=== PATIENT | male | born 1955 | race Caucasian/White ===

== ENCOUNTER → 2016-06-08 | Outpatient (CLI) | payer OTHER ==
[~2016-06-08] MED LIST: BENA40TA2 PO; DOCU100C PO; DULO60CA55 PO; GABA600T2 PO; HYDR-3138 PO; MELO-184 PO; METO50TA82 PO; OXYC-302 PO; TAMS0.4C2 PO; TIZA2CAP PO; TRIA1TAB3 PO; ZOLP10TA5 PO
== END | disposition home or self-care (01) ==
LOC: RAD 09:12
PROVIDERS: ATTEND Student in an Organized Health Care Education/Training Program
DX: M48.02 Spinal stenosis, cervical region (principal); M47.892 Other spondylosis, cervical region; M43.22 Fusion of spine, cervical region
CPT/HCPCS: 72141

== ENCOUNTER → 2017-02-17 | Outpatient (CLI) | payer OTHER ==
[~2017-02-17] MED LIST changes: +DOCU-180 PO; -DOCU100C PO; -HYDR-3138 PO; +HYDR-3237 PO; -MELO-184 PO; +MELO15TA24 PO
== END | disposition home or self-care (01) ==
LOC: CFH 15:57
PROVIDERS: ATTEND Student in an Organized Health Care Education/Training Program
DX: M51.26 Other intervertebral disc displacement, lumbar region (principal); M51.36 Other intervertebral disc degeneration, lumbar region; M25.78 Osteophyte, vertebrae; M48.061 Spinal stenosis, lumbar region without neurogenic claudication; M41.86 Other forms of scoliosis, lumbar region
CPT/HCPCS: 72148

== ENCOUNTER → 2017-09-07 | Outpatient (CLI) | payer OTHER | END | disposition home or self-care (01) | LOC: CVU 11:00 | PROVIDERS: ATTEND Family Medicine | DX: I10 Essential (primary) hypertension (principal); R01.1 Cardiac murmur, unspecified | CPT/HCPCS: 93306 ==

== ENCOUNTER → 2017-11-01 | Outpatient (CLI) | payer OTHER ==
[~2017-11-01] MED LIST changes: -BENA40TA2 PO; +BENA40TA3 PO; +TRIA1CAP3 PO
[2017-11-01 11:14] LABS: BASOPHILS # (AUTO) 0.05 x10^3/uL (0-0.1); BASOPHILS % (AUTO) 1 % (0-1); EOSINOPHILS # (AUTO) 0.61 x10^3/uL (0-0.4); EOSINOPHILS % (AUTO) 6 % (1-7); LYMPHOCYTES # (AUTO) 2.42 x10^3/uL (1-3.4); LYMPHOCYTES % (AUTO) 26 % (22-44); MD NO; MEAN CORPUSCULAR HEMOGLOBIN 30.2 pg (27.5-34.5); MEAN CORPUSCULAR HGB CONC 34.4 g/dL (33.2-36.2); MEAN CORPUSCULAR VOLUME 87.8 fL (81-97); MEAN PLATELET VOLUME 8.1 fL (7.4-10.4); MONOCYTES % (AUTO) 8 % (2-9); NEUTROPHILS # (AUTO) 5.56 x10^3/uL (1.8-6.8); NEUTROPHILS % (AUTO) 59 % (42-75); PLATELET COUNT 282 x10^3/uL (130-400); RED BLOOD COUNT 4.74 x10^6/uL (4.38-5.82); RED CELL DISTRIBUTION WIDTH 13.2 % (9.4-14.8)
[2017-11-01 11:15] LABS: MICROSCOPIC NOT IND
[2017-11-01 11:16] LABS: CULTURE INDICATED? NO
[2017-11-01 11:25] LABS: PROTHROMBIN TIME 10.3 Seconds (9.6-11.5)
[2017-11-01 11:27] LABS: ALANINE AMINOTRANSFERASE 22 U/L (12-78); ALBUMIN 3.9 g/dL (3.4-5.0); ANION GAP 10 mmol/L (5-15); CALCIUM 8.6 mg/dL (8.5-10.1); CHLORIDE 99 mmol/L (98-107); CREATININE 1.22 mg/dL (0.7-1.3)
[2017-11-01 11:29] LABS: ALKALINE PHOSPHATASE 71 U/L (45-117); BILIRUBIN,TOTAL 0.4 mg/dL (0.2-1.0); TOTAL PROTEIN 7.4 g/dL (6.4-8.2)
== END | disposition home or self-care (01) ==
LOC: STAR 10:11
PROVIDERS: ATTEND Neurological Surgery
DX: Z01.818 Encounter for other preprocedural examination (principal); M41.86 Other forms of scoliosis, lumbar region; M48.061 Spinal stenosis, lumbar region without neurogenic claudication; R94.31 Abnormal electrocardiogram [ECG] [EKG]; Z87.891 Personal history of nicotine dependence
CPT/HCPCS: 36415; 71046; 72110; 80053; 81003; 85025; 85610; 85730; 93005

== ENCOUNTER → 2018-03-14 | Outpatient (CLI) | payer OTHER ==
[~2018-03-14] MED LIST changes: +HYDR-3307 PO; +TIZA2TAB PO
[2018-03-14 12:35] LABS: BASOPHILS # (AUTO) 0.08 x10^3/uL (0-0.1); BASOPHILS % (AUTO) 1 % (0-1); EOSINOPHILS % (AUTO) 7 % (1-7); LYMPHOCYTES # (AUTO) 2.83 x10^3/uL (1-3.4); LYMPHOCYTES % (AUTO) 26 % (22-44); MD NO; MEAN CORPUSCULAR HEMOGLOBIN 29.5 pg (27.5-34.5); MEAN CORPUSCULAR HGB CONC 33.8 g/dL (33.2-36.2); MEAN CORPUSCULAR VOLUME 87.5 fL (81-97); MEAN PLATELET VOLUME 7.8 fL (7.4-10.4); MONOCYTES # (AUTO) 0.87 x10^3/uL (0.2-0.8); MONOCYTES % (AUTO) 8 % (2-9); NEUTROPHILS # (AUTO) 6.35 x10^3/uL (1.8-6.8); NEUTROPHILS % (AUTO) 59 % (42-75); PLATELET COUNT 316 x10^3/uL (130-400); RED BLOOD COUNT 4.98 x10^6/uL (4.38-5.82); RED CELL DISTRIBUTION WIDTH 13.6 % (9.4-14.8)
[2018-03-14 12:52] LABS: ALANINE AMINOTRANSFERASE 23 U/L (12-78); ALBUMIN 4.1 g/dL (3.4-5.0); ANION GAP 6 mmol/L (5-15); CALCIUM 8.9 mg/dL (8.5-10.1); CHLORIDE 96 mmol/L (98-107); CREATININE 1.36 mg/dL (0.7-1.3)
[2018-03-14 12:54] LABS: ALKALINE PHOSPHATASE 68 U/L (45-117); BILIRUBIN,TOTAL 0.5 mg/dL (0.2-1.0); INTERNATIONAL NORMALIZED RATIO 1.04 (0.93-1.1); TOTAL PROTEIN 7.7 g/dL (6.4-8.2)
[2018-03-14 13:10] LABS: MICROSCOPIC NOT IND
[2018-03-14 13:20] LABS: CULTURE INDICATED? NO
== END | disposition home or self-care (01) ==
LOC: STAR 11:13
PROVIDERS: ATTEND Neurological Surgery
DX: Z01.818 Encounter for other preprocedural examination (principal); M47.26 Other spondylosis with radiculopathy, lumbar region
CPT/HCPCS: 36415; 71046; 80053; 81003; 85025; 85610; 85730; 93005

== ENCOUNTER 2018-03-23 13:19 | Outpatient (CLI) | payer OTHER ==
[~2018-03-23 13:19] MED LIST changes: -GABA600T2 PO; +GABA600T7 PO
[2018-03-27] MEDS ORDERED: ROCURONIUM 10MG/ML,5ML ONE (06:46)
[2018-03-27] MEDS ORDERED: PROPOFOL 10 MG/ML, 20ML ONE ×3 (06:47→10:44)
[2018-03-27] MEDS ORDERED: FENTANYL PF 100 MCG/2ML ONE ×2 (06:50→11:11)
[2018-03-27] MEDS ORDERED: PHENYLEPHRINE 10 MG/ML ONE (06:50)
[2018-03-27] MEDS ORDERED: MIDAZOLAM 1 MG/ML, 2ML ONE (06:51)
[2018-03-27] MEDS ORDERED: EPHEDRINE 50 MG/ML, 1ML ONE (06:52)
[2018-03-27] MEDS ORDERED: ETOMIDATE 20 MG/10 ML ONE (06:54)
[2018-03-27] MEDS ORDERED: PROPOFOL 50 ML ONE ×6 (07:21→09:51)
[2018-03-27] MEDS ORDERED: LIDOCAINE 2% 100MG/5ML SYRINGE ONE ×2 (07:21→09:38)
[2018-03-27] MEDS ORDERED: HEPARIN 1,000 UNITS/ML, 30ML ONE (07:57)
== END 2018-03-23 23:59 | disposition home or self-care (01) ==
LOC: STAR 13:19
PROVIDERS: ATTEND Neurological Surgery
DX: Z01.818 Encounter for other preprocedural examination (principal); E87.1 Hypo-osmolality and hyponatremia
CPT/HCPCS: 36415; 84295

== ENCOUNTER 2018-03-27 05:26 | Inpatient (IN) | payer OTHER ==
[~2018-03-27] VITALS: Ht 180.3 cm; Wt 118.4 kg
[2018-03-27] MEDS ORDERED: LACTATED RINGERS 1,000 ML IV SCH (06:04)
[2018-03-27 06:06] VITALS: BP 120/78
[2018-03-27] MEDS ORDERED: BUPIVACAINE/PF-EPI 0.5% 1:200K ONE (06:19)
[2018-03-27] MEDS ORDERED: THROMBIN 5,000 UNIT VIAL TP ONE ×2 (06:19→11:30)
[2018-03-27] MEDS ORDERED: VANCOMYCIN 1,000 MG ONE (06:19)
[2018-03-27] MEDS ORDERED: BACITRACIN 50,000 UNIT ONE (06:19)
[2018-03-27] MEDS ORDERED: AMLO-150 PO (06:36)
[2018-03-27] MEDS ORDERED: TRAZ50TA66 PO (06:36)
[2018-03-27] MEDS ORDERED: FURO20TA3 PO (06:36)
[2018-03-27] MEDS ORDERED: LIDOCAINE-MPF 2% ,5ML ONE (07:00)
[2018-03-27] MEDS ORDERED: PROPOFOL 10 MG/ML, 50ML ONE (07:00)
[2018-03-27] MEDS ORDERED: CEFAZOLIN 1,000 MG ONE (07:00)
[2018-03-27] MEDS ORDERED: PROPOFOL 10 MG/ML, 20ML ONE (07:00)
[2018-03-27] MEDS ORDERED: PHENYLEPHRINE 10 MG/ML ONE (07:00)
[2018-03-27] MEDS ORDERED: OXYcodone 5 MG/5 ML ORAL.SOL UDC PO PRN (09:30)
[2018-03-27] MEDS ORDERED: MEPERIDINE/PF 25MG/0.5ML IVPush PRN (09:30)
[2018-03-27] MEDS ORDERED: HYDROcodone/APAP 7.5-325MG/15ML UDC PO PRN (09:30)
[2018-03-27] MEDS ORDERED: HYDROmorphone 2 MG/ML, 1ML IVPush PRN (09:30)
[2018-03-27] MEDS ORDERED: SUGAMMADEX 200 MG/2 ML IVPush ONE (10:28)
[2018-03-27] MEDS ORDERED: PROMETHAZINE 25 MG/ML, 1ML IM PRN (11:30)
[2018-03-27] MEDS ORDERED: LABETALOL 5MG/ML, 20ML IVPush PRN (11:30)
[2018-03-27] MEDS ORDERED: BISACODYL 10 MG SUPP PR PRN (11:30)
[2018-03-27] MEDS ORDERED: MAGNESIUM HYDROXIDE 8%, 30ML UDC PO PRN (11:30)
[2018-03-27] MEDS ORDERED: TIZANIDINE 2MG TABLET PO PRN (11:30)
[2018-03-27] MEDS ORDERED: MEPERIDINE/PF 100 MG/ML IM PRN (11:30)
[2018-03-27] MEDS ORDERED: HYDROmorphone 1 MG/ML, 1ML IVPush PRN (11:30)
[2018-03-27] MEDS ORDERED: ONDANSETRON 2MG/ML, 2ML IVPush PRN (11:30)
[2018-03-27] MEDS ORDERED: DIPHENHYDRAMINE 25 MG CAPSULE PO PRN (11:30)
[2018-03-27] MEDS ORDERED: PHARMACY MAY ADJ FOR RENAL FX MC PRN (11:30)
[2018-03-27] MEDS ORDERED: FENTANYL PF 100 MCG/2ML ONE (11:56)
[2018-03-27 11:59] LABS: BASOPHILS # (AUTO) 0.05 x10^3/uL (0-0.1); BASOPHILS % (AUTO) 0 % (0-1); EOSINOPHILS # (AUTO) 0.04 x10^3/uL (0-0.4); EOSINOPHILS % (AUTO) 0 % (1-7); LYMPHOCYTES # (AUTO) 1.24 x10^3/uL (1-3.4); LYMPHOCYTES % (AUTO) 9 % (22-44); MD NO; MEAN CORPUSCULAR HEMOGLOBIN 29.4 pg (27.5-34.5); MEAN CORPUSCULAR HGB CONC 33.8 g/dL (33.2-36.2); MEAN CORPUSCULAR VOLUME 86.9 fL (81-97); MEAN PLATELET VOLUME 7.8 fL (7.4-10.4); MONOCYTES # (AUTO) 0.86 x10^3/uL (0.2-0.8); MONOCYTES % (AUTO) 6 % (2-9); NEUTROPHILS # (AUTO) 11.72 x10^3/uL (1.8-6.8); NEUTROPHILS % (AUTO) 84 % (42-75); PLATELET COUNT 247 x10^3/uL (130-400); RED BLOOD COUNT 3.75 x10^6/uL (4.38-5.82); RED CELL DISTRIBUTION WIDTH 13.7 % (9.4-14.8)
[2018-03-27] MEDS: FENTANYL PF 100 MCG/2ML IV PRN ×3 (12:00→12:28)
[2018-03-27 12:06] LABS: INTERNATIONAL NORMALIZED RATIO 1.06 (0.93-1.1); PROTHROMBIN TIME 11.2 Seconds (9.6-11.5)
[2018-03-27] MEDS: NS + 20MEQ KCL 1,000 ML IV SCH ×2 (14:22→23:05)
[2018-03-27] MEDS: CEFAZOLIN PMX 1GM/50ML 50 ML IVPB SCH ×2 (14:22→23:05)
[2018-03-27 14:25] VITALS: BP 93/60
[2018-03-27 20:19] VITALS: BP 95/62
[2018-03-27] MEDS: TRAZODONE 50MG TABLET PO SCH (20:21)
[2018-03-27] MEDS: GABAPENTIN 300 MG CAPSULE PO SCH (20:21)
[2018-03-27] MEDS: ZOLPIDEM 10MG TABLET PO SCH (20:22)
[2018-03-27] MEDS: SODIUM CHLORIDE FLUSH 10ML SYR IVF SCH (20:22)
[2018-03-27] MEDS: METOPROLOL TARTRATE 50 MG TABLET PO SCH (20:22)
[2018-03-27] MEDS: DULOXETINE 30 MG CAPSULE.DR PO SCH (20:22)
[2018-03-27 20:24] VITALS: BP 95/62
[2018-03-28] VITALS: BP 103/55
[2018-03-28 03:34] VITALS: BP 116/75
[2018-03-28 06:37] LABS: BASOPHILS # (AUTO) 0.02 x10^3/uL (0-0.1); BASOPHILS % (AUTO) 0 % (0-1); EOSINOPHILS # (AUTO) 0.04 x10^3/uL (0-0.4); EOSINOPHILS % (AUTO) 0 % (1-7); LYMPHOCYTES # (AUTO) 1.38 x10^3/uL (1-3.4); LYMPHOCYTES % (AUTO) 14 % (22-44); MD NO; MEAN CORPUSCULAR HEMOGLOBIN 30.2 pg (27.5-34.5); MEAN CORPUSCULAR HGB CONC 34.7 g/dL (33.2-36.2); MEAN PLATELET VOLUME 7.9 fL (7.4-10.4); MONOCYTES # (AUTO) 1.08 x10^3/uL (0.2-0.8); MONOCYTES % (AUTO) 11 % (2-9); NEUTROPHILS # (AUTO) 7.27 x10^3/uL (1.8-6.8); NEUTROPHILS % (AUTO) 74 % (42-75); PLATELET COUNT 187 x10^3/uL (130-400); RED BLOOD COUNT 3.46 x10^6/uL (4.38-5.82); RED CELL DISTRIBUTION WIDTH 13.4 % (9.4-14.8)
[2018-03-28 06:47] LABS: ANION GAP 4 mmol/L (5-15); CALCIUM 7.6 mg/dL (8.5-10.1); CHLORIDE 99 mmol/L (98-107); CREATININE 1.17 mg/dL (0.7-1.3)
[2018-03-28 06:55] VITALS: BP 118/69
[2018-03-28] MEDS: METOPROLOL TARTRATE 50 MG TABLET PO SCH ×2 (09:09→20:13)
[2018-03-28] MEDS: TRIAMTERENE-HCTZ 37.5/25 MG TABLET PO SCH (09:09)
[2018-03-28] MEDS: TAMSULOSIN 0.4 MG CAP.ER.24H PO SCH (09:09)
[2018-03-28] MEDS: BENAZEPRIL 20 MG TABLET PO SCH (09:10)
[2018-03-28] MEDS: GABAPENTIN 300 MG CAPSULE PO SCH ×2 (09:12→20:11)
[2018-03-28] MEDS: SODIUM CHLORIDE FLUSH 10ML SYR IVF SCH ×2 (09:12→20:14)
[2018-03-28] MEDS: AMLODIPINE 5 MG TABLET PO SCH (09:12)
[2018-03-28] MEDS: FUROSEMIDE 20 MG TABLET PO SCH (09:12)
[2018-03-28] MEDS: SENNA/DOCUSATE TABLET PO SCH (09:13)
[2018-03-28] MEDS ORDERED: OXYcodone/APAP 10/325MG TABLET PO ONE (09:30)
[2018-03-28] MEDS: NS + 20MEQ KCL 1,000 ML IV SCH ×2 (10:00→19:00)
[2018-03-28 14:12] VITALS: BP 121/66
[2018-03-28] MEDS: HYDROcodone/APAP 10/325 MG TABLET PO PRN ×2 (16:05→20:10)
[2018-03-28 19:25] VITALS: BP 106/63
[2018-03-28 20:10] VITALS: BP 114/75
[2018-03-28] MEDS: DULOXETINE 30 MG CAPSULE.DR PO SCH (20:11)
[2018-03-28] MEDS: ZOLPIDEM 10MG TABLET PO SCH (21:19)
[2018-03-28] MEDS: TRAZODONE 50MG TABLET PO SCH (21:20)
[2018-03-29] MEDS: HYDROcodone/APAP 10/325 MG TABLET PO PRN ×3 (00:28→08:54)
[2018-03-29 00:38] VITALS: BP 91/54
[2018-03-29] MEDS: NS + 20MEQ KCL 1,000 ML IV SCH (04:34)
[2018-03-29 05:57] LABS: ANION GAP 6 mmol/L (5-15); CALCIUM 8.5 mg/dL (8.5-10.1); CHLORIDE 96 mmol/L (98-107); CREATININE 1.05 mg/dL (0.7-1.3)
[2018-03-29 06:04] LABS: BASOPHILS # (AUTO) 0.04 x10^3/uL (0-0.1); BASOPHILS % (AUTO) 0 % (0-1); EOSINOPHILS # (AUTO) 0.05 x10^3/uL (0-0.4); EOSINOPHILS % (AUTO) 0 % (1-7); LYMPHOCYTES % (AUTO) 12 % (22-44); MD NO; MEAN CORPUSCULAR HEMOGLOBIN 30.2 pg (27.5-34.5); MEAN CORPUSCULAR HGB CONC 34.9 g/dL (33.2-36.2); MEAN CORPUSCULAR VOLUME 86.5 fL (81-97); MEAN PLATELET VOLUME 8.1 fL (7.4-10.4); MONOCYTES # (AUTO) 1.41 x10^3/uL (0.2-0.8); MONOCYTES % (AUTO) 12 % (2-9); NEUTROPHILS # (AUTO) 8.91 x10^3/uL (1.8-6.8); NEUTROPHILS % (AUTO) 76 % (42-75); PLATELET COUNT 194 x10^3/uL (130-400); RED BLOOD COUNT 3.56 x10^6/uL (4.38-5.82); RED CELL DISTRIBUTION WIDTH 13.6 % (9.4-14.8)
[2018-03-29 06:36] VITALS: BP 107/70
[2018-03-29] MEDS: BENAZEPRIL 20 MG TABLET PO SCH (08:53)
[2018-03-29] MEDS: SENNA/DOCUSATE TABLET PO SCH (08:53)
[2018-03-29] MEDS: TRIAMTERENE-HCTZ 37.5/25 MG TABLET PO SCH (08:53)
[2018-03-29] MEDS: GABAPENTIN 300 MG CAPSULE PO SCH (08:54)
[2018-03-29] MEDS: METOPROLOL TARTRATE 50 MG TABLET PO SCH ×2 (08:55→09:02)
[2018-03-29] MEDS: TAMSULOSIN 0.4 MG CAP.ER.24H PO SCH (08:55)
[2018-03-29] MEDS: FUROSEMIDE 20 MG TABLET PO SCH (08:55)
[2018-03-29] MEDS: AMLODIPINE 5 MG TABLET PO SCH (08:56)
[2018-03-29] MEDS: SODIUM CHLORIDE FLUSH 10ML SYR IVF SCH (08:56)
== END 2018-03-29 12:27 | disposition home or self-care (01) | DRG 455 ==
LOC: ORIP 05:26 → 4NOR 13:18 → DCLOUNGE 03-29 12:00
PROVIDERS: ADMIT Neurological Surgery; ATTEND Neurological Surgery
PROC: 0SG0071 Fusion of Lumbar Vertebral Joint with Autologous Tissue Substitute, Posterior Approach, Posterior Column, Open Approach (ICD-10-PCS; 2018-03-27)
PROC: 0SB20ZZ Excision of Lumbar Vertebral Disc, Open Approach (ICD-10-PCS; 2018-03-27)
PROC: 4A11X4G Monitoring of Peripheral Nervous Electrical Activity, Intraoperative, External Approach (ICD-10-PCS; 2018-03-27)
PROC: 30233K1 Transfusion of Nonautologous Frozen Plasma into Peripheral Vein, Percutaneous Approach (ICD-10-PCS; 2018-03-27)
PROC: 30233N1 Transfusion of Nonautologous Red Blood Cells into Peripheral Vein, Percutaneous Approach (ICD-10-PCS; 2018-03-27)
PROC: 0SG10AJ Fusion of 2 or more Lumbar Vertebral Joints with Interbody Fusion Device, Posterior Approach, Anterior Column, Open Approach (ICD-10-PCS; principal; 2018-03-27 07:00)
DX: M48.062 Spinal stenosis, lumbar region with neurogenic claudication (principal); M51.36 Other intervertebral disc degeneration, lumbar region; E78.00 Pure hypercholesterolemia, unspecified; F41.9 Anxiety disorder, unspecified; F32.9 Major depressive disorder, single episode, unspecified; M19.90 Unspecified osteoarthritis, unspecified site; M47.26 Other spondylosis with radiculopathy, lumbar region; F12.20 Cannabis dependence, uncomplicated; G89.29 Other chronic pain; I12.9 Hypertensive chronic kidney disease with stage 1 through stage 4 chronic kidney disease, or unspecified chronic kidney disease; N18.9 Chronic kidney disease, unspecified; Z83.3 Family history of diabetes mellitus; Z82.49 Family history of ischemic heart disease and other diseases of the circulatory system; Z82.61 Family history of arthritis; Z87.891 Personal history of nicotine dependence
CPT/HCPCS: 36415; 72100; 80048; 85025; 85610; 86850; 86900; 86923; 94660; 95938; 95941; C1713; C1776; G0378; J0690; J1644; J2250; J2270; J2704; J3010; J3370; J3480; J3490; C1762; J2370; J7120; P9016; P9017

== ENCOUNTER 2018-08-22 13:19 | Outpatient (CLI) | payer OTHER ==
[~2018-08-22 13:19] MED LIST changes: +AMLO-150 PO; +FURO20TA3 PO; +TRAZ50TA66 PO
[2018-08-22] MEDS ORDERED: POTA20TA89 PO (14:10)
[2018-08-22] MEDS ORDERED: ZOLP-413 PO (14:10)
[2018-08-22] MEDS ORDERED: MELA1TAB15 PO (14:10)
[2018-08-22 14:34] LABS: BASOPHILS % (AUTO) 1 % (0-1); EOSINOPHILS % (AUTO) 3 % (1-7); LYMPHOCYTES # (AUTO) 3.16 x10^3/uL (1-3.4); LYMPHOCYTES % (AUTO) 28 % (22-44); MD NO; MEAN CORPUSCULAR HEMOGLOBIN 25.9 pg (27.5-34.5); MEAN CORPUSCULAR HGB CONC 31.8 g/dL (33.2-36.2); MEAN CORPUSCULAR VOLUME 81.6 fL (81-97); MEAN PLATELET VOLUME 8.2 fL (7.4-10.4); MONOCYTES % (AUTO) 10 % (2-9); NEUTROPHILS # (AUTO) 6.71 x10^3/uL (1.8-6.8); NEUTROPHILS % (AUTO) 59 % (42-75); PLATELET COUNT 309 x10^3/uL (130-400); RED BLOOD COUNT 5.91 x10^6/uL (4.38-5.82); RED CELL DISTRIBUTION WIDTH 16.1 % (9.4-14.8)
[2018-08-22 14:42] LABS: ALBUMIN 4.1 g/dL (3.4-5.0); ANION GAP 5 mmol/L (5-15); CALCIUM 9.1 mg/dL (8.5-10.1); CHLORIDE 102 mmol/L (98-107)
[2018-08-22 14:42] LABS: MICROSCOPIC NOT IND
[2018-08-22 14:45] LABS: ALANINE AMINOTRANSFERASE 21 U/L (12-78); ALKALINE PHOSPHATASE 97 U/L (45-117); BILIRUBIN,TOTAL 0.5 mg/dL (0.2-1.0); CREATININE 1.26 mg/dL (0.7-1.3); TOTAL PROTEIN 8.2 g/dL (6.4-8.2)
[2018-08-22 14:46] LABS: CULTURE INDICATED? NO
[2018-08-22 15:03] LABS: INTERNATIONAL NORMALIZED RATIO 0.99 (0.93-1.1); PROTHROMBIN TIME 10.4 Seconds (9.6-11.5)
== END 2018-08-22 23:59 | disposition home or self-care (01) ==
LOC: STAR 13:19
PROVIDERS: ATTEND Neurological Surgery
DX: Z01.818 Encounter for other preprocedural examination (principal); T84.3 Mechanical complication of other bone devices, implants and grafts; T84.89XA Other specified complication of internal orthopedic prosthetic devices, implants and grafts, initial encounter
CPT/HCPCS: 36415; 71046; 80053; 81003; 85025; 85610; 85730; 93005

== ENCOUNTER 2018-09-05 11:56 | Inpatient (IN) | payer OTHER ==
[~2018-09-05] VITALS: Ht 180.3 cm; Wt 119.1 kg
[~2018-09-05 11:56] MED LIST changes: +BACITRACIN 50,000 UNIT ONE; +BUPIVACAINE/PF 0.25% ONE; +EPINEPHRINE 1 MG/ML, 1ML ONE; +MELA1TAB15 PO; +POTA20TA89 PO; +THROMBIN 5,000 UNIT VIAL TP ONE; +ZOLP-413 PO
[2018-09-05] MEDS ORDERED: PROPOFOL 50 ML ONE ×2 (12:34→17:04)
[2018-09-05] MEDS ORDERED: MIDAZOLAM 1 MG/ML, 2ML ONE (12:34)
[2018-09-05] MEDS ORDERED: DEXAMETHASONE 4 MG/ML, 1ML ONE ×2 (12:35)
[2018-09-05] MEDS ORDERED: FENTANYL PF 250 MCG/5ML ONE (12:35)
[2018-09-05] MEDS ORDERED: PROPOFOL 10 MG/ML, 20ML ONE (12:35)
[2018-09-05] MEDS ORDERED: CEFAZOLIN 1,000 MG ONE ×2 (12:35)
[2018-09-05] MEDS ORDERED: LIDOCAINE-MPF 2% ,5ML ONE (12:35)
[2018-09-05] MEDS ORDERED: SUCCINYLCHOLINE 20 MG/ML, 10ML ONE (12:37)
[2018-09-05] MEDS: LACTATED RINGERS 1,000 ML IV SCH ×2 (12:48→12:52)
[2018-09-05] MEDS ORDERED: ACETAMINOPHEN 500 MG TABLET PO ONE (13:00)
[2018-09-05] MEDS ORDERED: SCOPOLAMINE PATCH, 1.5MG PATCH.TD72 TD ONE (13:00)
[2018-09-05] MEDS ORDERED: GABAPENTIN 300 MG CAPSULE PO ONE (13:00)
[2018-09-05] MEDS ORDERED: BUPIVACAINE/EPI 0.5% 1:200K ONE (15:05)
[2018-09-05] MEDS ORDERED: EPHEDRINE 50 MG/ML, 1ML ONE (16:27)
[2018-09-05] MEDS ORDERED: ONDANSETRON 2MG/ML, 2ML IV PRN ×2 (16:30→20:00)
[2018-09-05] MEDS ORDERED: ALBUTEROL SULFATE 2.5 MG/3 ML NPPB PRN (16:30)
[2018-09-05] MEDS ORDERED: HYDROmorphone 2 MG/ML, 1ML IVPush PRN (16:30)
[2018-09-05] MEDS ORDERED: METOCLOPRAMIDE 5 MG/ML, 2ML IV PRN (16:30)
[2018-09-05] MEDS ORDERED: LORazepam 2 MG/ML, 1ML IVPush PRN (16:30)
[2018-09-05] MEDS ORDERED: OXYcodone 5 MG/5 ML ORAL.SOL UDC PO PRN (16:30)
[2018-09-05] MEDS ORDERED: MEPERIDINE/PF 25MG/0.5ML IVPush PRN (16:30)
[2018-09-05] MEDS ORDERED: hydrALAzine 20 MG/ML, 1ML IV PRN (16:30)
[2018-09-05] MEDS ORDERED: OXYcodone 5 MG/5 ML ORAL.SOL UDC ONE (17:56)
[2018-09-05] MEDS ORDERED: FENTANYL PF 100 MCG/2ML ONE (17:56)
[2018-09-05] MEDS: FENTANYL PF 100 MCG/2ML IV PRN ×2 (17:58→18:17)
[2018-09-05] MEDS ORDERED: morphine SULFATE 10 MG/ML, 1ML IV PRN (20:00)
[2018-09-05] MEDS ORDERED: BISACODYL 10 MG SUPP PR PRN (20:00)
[2018-09-05] MEDS ORDERED: TIZANIDINE 2MG TABLET PO PRN (20:00)
[2018-09-05] MEDS ORDERED: PROMETHAZINE 25 MG/ML, 1ML IM PRN (20:00)
[2018-09-05] MEDS ORDERED: HYDROcodone/APAP 10/325 MG TABLET PO PRN (20:00)
[2018-09-05] MEDS: NS + 20MEQ KCL 1,000 ML IV SCH (20:00)
[2018-09-05] MEDS ORDERED: MAGNESIUM HYDROXIDE 8%, 30ML UDC PO PRN (20:00)
[2018-09-05] MEDS ORDERED: TRAZODONE 50MG TABLET PO SCH (21:00)
[2018-09-05] MEDS ORDERED: MELATONIN 5 MG TABLET PO SCH (21:00)
[2018-09-05] MEDS ORDERED: ZOLPIDEM 5MG TABLET PO SCH (21:00)
[2018-09-05] MEDS ORDERED: BENAZEPRIL 20 MG TABLET PO SCH (21:00)
[2018-09-05] MEDS ORDERED: DULOXETINE 30 MG CAPSULE.DR PO SCH (21:00)
[2018-09-05] MEDS: GABAPENTIN 300 MG CAPSULE PO SCH (22:55)
[2018-09-05] MEDS: OXYcodone/APAP 10/325MG TABLET PO PRN (23:03)
[2018-09-05 23:58] VITALS: BP 132/87
[2018-09-06] MEDS: CEFAZOLIN PMX 1GM/50ML 50 ML IVPB SCH ×2 (03:03→11:10)
[2018-09-06 03:47] VITALS: BP 125/74
[2018-09-06] MEDS: NS + 20MEQ KCL 1,000 ML IV SCH (05:21)
[2018-09-06] MEDS ORDERED: METOPROLOL TARTRATE 50 MG TABLET PO SCH (06:00)
[2018-09-06 06:25] VITALS: BP 144/72
[2018-09-06] MEDS: GABAPENTIN 300 MG CAPSULE PO SCH (08:03)
[2018-09-06] MEDS: OXYcodone/APAP 10/325MG TABLET PO PRN (08:03)
[2018-09-06 08:05] VITALS: BP 165/101
[2018-09-06] MEDS ORDERED: SENNA/DOCUSATE TABLET PO SCH (09:00)
[2018-09-06] MEDS ORDERED: POTASSIUM CHLORIDE 20 MEQ TAB.ER.PRT PO SCH (09:00)
[2018-09-06] MEDS ORDERED: AMLODIPINE 5 MG TABLET PO SCH (09:00)
== END 2018-09-06 13:36 | disposition home or self-care (01) | DRG 517 ==
LOC: ORIP 11:56 → 4NOR 18:47 → DCLOUNGE 09-06 13:11
PROVIDERS: ADMIT Neurological Surgery; ATTEND Neurological Surgery
PROC: 0SH004Z Insertion of Internal Fixation Device into Lumbar Vertebral Joint, Open Approach (ICD-10-PCS; 2018-09-05)
PROC: 0SP004Z Removal of Internal Fixation Device from Lumbar Vertebral Joint, Open Approach (ICD-10-PCS; principal; 2018-09-05 15:00)
DX: T84.226A Displacement of internal fixation device of vertebrae, initial encounter (principal); M51.36 Other intervertebral disc degeneration, lumbar region; M54.16 Radiculopathy, lumbar region; I10 Essential (primary) hypertension; E78.00 Pure hypercholesterolemia, unspecified; Y83.8 Other surgical procedures as the cause of abnormal reaction of the patient, or of later complication, without mention of misadventure at the time of the procedure; F41.9 Anxiety disorder, unspecified; F32.9 Major depressive disorder, single episode, unspecified; M19.90 Unspecified osteoarthritis, unspecified site; Z83.3 Family history of diabetes mellitus; Z82.61 Family history of arthritis; Y92.89 Other specified places as the place of occurrence of the external cause; Z82.49 Family history of ischemic heart disease and other diseases of the circulatory system; Z87.891 Personal history of nicotine dependence
CPT/HCPCS: 93922; 95938; 95941; C1713; G0378; J0171; J0690; J1100; J2250; J2704; J3010; J3490; J0330; J7120